=== PATIENT | female | born 1950 | race Caucasian/White ===

== ENCOUNTER 2018-12-26 17:32 | Emergency (ER) | payer OTHER ==
[~2018-12-26] VITALS: Ht 152.4 cm; Wt 63.5 kg
[2018-12-26 17:34] VITALS: BP 177/101
--- NOTE | 2018-12-26 18:10 | NUR ---
ASSISTED PT TO BR VIA WC.
[2018-12-26] MEDS ORDERED: OXYcodone/APAP 5/325MG TABLET PO ONE (18:30)
[2018-12-26] MEDS ORDERED: OXYcodone/APAP 5/325MG TABLET ONE (18:34)
--- NOTE | 2018-12-26 19:20 | NUR ---
L SHOULDER SLING APPLIED BY AXLE TURNER. CMS INTACT. D/C INSTRUCTIONS RV'WD WITH PT AND SON, PT VERBALIZES UNDERSTANDING. ASSISTED OUT OF ED VIA WC.
== END 2018-12-26 19:35 | disposition home or self-care (01) ==
LOC: ED 19:24
DX: S43.402A Unspecified sprain of left shoulder joint, initial encounter (principal); S73.102A Unspecified sprain of left hip, initial encounter; Z88.1 Allergy status to other antibiotic agents; Z88.8 Allergy status to other drugs, medicaments and biological substances; W22.8XXA Striking against or struck by other objects, initial encounter; Y93.89 Activity, other specified; Y92.89 Other specified places as the place of occurrence of the external cause; Y99.8 Other external cause status
CPT/HCPCS: 99283